=== PATIENT | female | born 1990 | race African-American/Black ===

== ENCOUNTER 2016-08-27 22:40 | Emergency (ER) | payer OTHER ==
[2016-08-27 23:44] LABS: BASOPHILS 0.3 %; BASOPHILS ABSOLUTE 0.02 10/3/uL (0.0-0.16); EOSINOPHILS 1.3 %; EOSINOPHILS ABSOLUTE 0.08 10/3/uL (0.0-0.53); ER CBC TAT 0 Hrs 05 Mins; HEMATOCRIT 37.1 % (36.0-48.0); HEMOGLOBIN 11.8 g/dL (12.0-16.0); IMMATURE GRANULOCYTES 0.2 %; IMMATURE GRANULOCYTES ABSOLUTE 0.01 10/3/uL (0.0-0.11); LYMPHOCYTES 40.6 %; LYMPHOCYTES ABSOLUTE 2.43 10/3/uL (0.67-4.30); MEAN CORPUS HGB CONC 31.8 g/dL (32.0-36.0); MEAN CORPUSCULAR HEMOGLOB 27.3 pg (26.0-34.0); MEAN CORPUSCULAR VOLUME 85.9 fL (80-100); MEAN PLATELET VOLUME 8.5 fL (9.2-13.0); MONOCYTES 5.2 %; MONOCYTES ABSOLUTE 0.31 10/3/uL (0.21-1.20); NEUTROPHILS 52.4 %; NEUTROPHILS ABSOLUTE 3.13 10/3/uL (2.02-8.40); PLATELET COUNT 339 10/3/uL (150-400); RED CELL COUNT 4.32 10/6/uL (4.0-5.6)
[2016-08-27 23:45] LABS: MANUAL DIFF NO %
[2016-08-28] LABS: A/G RATIO 0.9 (0.7-1.9); ALBUMIN 3.5 G/DL (3.5-5.0); ALKALINE PHOSPHATASE 64 U/L (45-117); CALCIUM, SERUM 8.4 MG/DL (8.5-10.4); CHLORIDE, SERUM 108 MMOL/L (96-112); CREATININE 0.65 MG/DL (0.55-1.02); GFR AFRICAN AMERICAN 140 ML/MIN (>=60); GFR NON AFRICAN AMERICAN 121 ML/MIN (>=60); GLOBULIN 3.8 G/DL (2.5-4.1); GLUCOSE, SERUM 95 MG/DL (60-99); POTASSIUM, SERUM 3.6 MMOL/L (3.5-5.3); SGOT(AST) 11 U/L (5-40); SGPT(ALT) 19 U/L (5-65); SODIUM, SERUM 143 MMOL/L (135-148); TOTAL BILIRUBIN 0.2 MG/DL (0-1.2); TOTAL PROTEIN 7.3 G/DL (6.0-8.5)
[2016-08-28 00:01] LABS: BUN (BLOOD UREA NITROGEN) 10 MG/DL (6-23); CO2 (CARBON DIOXIDE) 28 MMOL/L (24-34)
== END 2016-08-28 01:31 | disposition home or self-care (01) ==
LOC: ER 22:40
PROVIDERS: Nurse Practitioner
DX: M62.830 Muscle spasm of back (principal); F17.200 Nicotine dependence, unspecified, uncomplicated; Z88.8 Allergy status to other drugs, medicaments and biological substances
CPT/HCPCS: 80053; 85025; 93005; 99284; A9270-GY; J1885; J2360

== ENCOUNTER 2016-09-10 10:07 | Emergency (ER) | payer OTHER ==
[2016-09-10 10:35] LABS: ASCORBIC ACID (UR NOT ORDER) NEG (NEG); BILIRUBIN, URINE NEGATIVE (NEG); ER URINALYSIS TAT 0 Hrs 22 Mins; KETONE, URINE NEGATIVE (NEG); LEUKOCYTE ESTERASE(NOT OR NEG (NEG); NITRITE (URINE) NEG (NEG); WBC (NOT ORDERED) (RFLEX) 4 (0-5)
[2016-09-10 10:36] LABS: BASOPHILS 0.4 %; BASOPHILS ABSOLUTE 0.03 10/3/uL (0.0-0.16); EOSINOPHILS ABSOLUTE 0.14 10/3/uL (0.0-0.53); ER CBC TAT 0 Hrs 10 Mins; HEMATOCRIT 34.6 % (36.0-48.0); HEMOGLOBIN 10.9 g/dL (12.0-16.0); IMMATURE GRANULOCYTES 0.3 %; IMMATURE GRANULOCYTES ABSOLUTE 0.02 10/3/uL (0.0-0.11); LYMPHOCYTES 49.6 %; LYMPHOCYTES ABSOLUTE 3.43 10/3/uL (0.67-4.30); MANUAL DIFF NO %; MEAN CORPUS HGB CONC 31.5 g/dL (32.0-36.0); MEAN CORPUSCULAR HEMOGLOB 26.9 pg (26.0-34.0); MEAN CORPUSCULAR VOLUME 85.4 fL (80-100); MEAN PLATELET VOLUME 8.6 fL (9.2-13.0); MONOCYTES 7.8 %; MONOCYTES ABSOLUTE 0.54 10/3/uL (0.21-1.20); NEUTROPHILS 39.9 %; NEUTROPHILS ABSOLUTE 2.75 10/3/uL (2.02-8.40); PLATELET COUNT 274 10/3/uL (150-400); RED CELL COUNT 4.05 10/6/uL (4.0-5.6); WHITE BLOOD CELLS 6.9 10/3/uL (4.5-10.5)
[2016-09-10 10:45] LABS: INTERNATIONAL NORMAL RATI 1.1 UNITS (-); PARTIAL THROMBO TIME 29.7 SEC (22.5-37.2); PROTIME (NOT ORD) 13.6 SEC (12.0-14.5)
[2016-09-10 10:51] LABS: BUN (BLOOD UREA NITROGEN) 10 MG/DL (6-23); CHEST PAIN PROFILE TAT 0 Hrs 25 Mins; CHLORIDE, SERUM 109 MMOL/L (96-112); CO2 (CARBON DIOXIDE) 27 MMOL/L (24-34); CREATININE 0.56 MG/DL (0.55-1.02); GFR AFRICAN AMERICAN 147 ML/MIN (>=60); GFR NON AFRICAN AMERICAN 127 ML/MIN (>=60); GLUCOSE, SERUM 92 MG/DL (60-99); POTASSIUM, SERUM 4.2 MMOL/L (3.5-5.3); SODIUM, SERUM 142 MMOL/L (135-148); TROPONIN I <0.02 NG/ML (<0.05)
== END 2016-09-10 12:48 | disposition home or self-care (01) ==
LOC: ER 10:07
PROVIDERS: Emergency Medicine
DX: R42 Dizziness and giddiness (principal); F17.200 Nicotine dependence, unspecified, uncomplicated; Z88.8 Allergy status to other drugs, medicaments and biological substances
CPT/HCPCS: 70450; 80048; 81001; 83735; 84484; 84703; 85025; 85610; 85730; 93005; 99285

== ENCOUNTER 2016-09-15 09:13 | Emergency (ER) | payer OTHER ==
[2016-09-15 09:43] LABS: BASOPHILS 0.4 %; BASOPHILS ABSOLUTE 0.03 10/3/uL (0.0-0.16); EOSINOPHILS 0.8 %; EOSINOPHILS ABSOLUTE 0.07 10/3/uL (0.0-0.53); HEMATOCRIT 36.4 % (36.0-48.0); HEMOGLOBIN 11.7 g/dL (12.0-16.0); IMMATURE GRANULOCYTES 0.2 %; IMMATURE GRANULOCYTES ABSOLUTE 0.02 10/3/uL (0.0-0.11); LYMPHOCYTES 31.5 %; LYMPHOCYTES ABSOLUTE 2.62 10/3/uL (0.67-4.30); MANUAL DIFF NO %; MEAN CORPUS HGB CONC 32.1 g/dL (32.0-36.0); MEAN CORPUSCULAR HEMOGLOB 27.5 pg (26.0-34.0); MEAN CORPUSCULAR VOLUME 85.6 fL (80-100); MEAN PLATELET VOLUME 8.6 fL (9.2-13.0); MONOCYTES 9.6 %; NEUTROPHILS 57.5 %; NEUTROPHILS ABSOLUTE 4.78 10/3/uL (2.02-8.40); PLATELET COUNT 275 10/3/uL (150-400); RBC DISTRIBUTION WIDTH 12.9 % (12.0-16.0); RED CELL COUNT 4.25 10/6/uL (4.0-5.6); WHITE BLOOD CELLS 8.3 10/3/uL (4.5-10.5)
[2016-09-15 09:55] LABS: D-DIMER QUANTITATIVE 0.29 ug/mLFEU (< 0.50)
[2016-09-15 10:08] LABS: A/G RATIO 0.9 (0.7-1.9); ALBUMIN 3.6 G/DL (3.5-5.0); ALKALINE PHOSPHATASE 60 U/L (45-117); CALCIUM, SERUM 8.4 MG/DL (8.5-10.4); CHLORIDE, SERUM 107 MMOL/L (96-112); CO2 (CARBON DIOXIDE) 27 MMOL/L (24-34); CREATININE 0.62 MG/DL (0.55-1.02); GFR AFRICAN AMERICAN 142 ML/MIN (>=60); GFR NON AFRICAN AMERICAN 123 ML/MIN (>=60); GLOBULIN 3.9 G/DL (2.5-4.1); GLUCOSE, SERUM 94 MG/DL (60-99); SGOT(AST) 9 U/L (5-40); SGPT(ALT) 15 U/L (5-65); SODIUM, SERUM 140 MMOL/L (135-148); TOTAL BILIRUBIN 0.3 MG/DL (0-1.2); TOTAL PROTEIN 7.5 G/DL (6.0-8.5)
[2016-09-15 10:09] LABS: ACETAMINOPHEN LEVEL (TYLENOL) < 2.0 MCG/ML (10.0-20.0); ALCOHOL < 10 MG/DL (0); BUN (BLOOD UREA NITROGEN) 15 MG/DL (6-23); SALICYLATE < 1.7 MG/DL (-)
[2016-09-15 10:15] LABS: AMPHETAMINES (NOT ORD) NEG (NEG); BARBITURATES (NOT ORDERED NEG (NEG); BENZODIAZEPINES (NOT ORD) NEG (NEG); CANNABINOIDS (THC) NEG (NEG); COCAINE (NOT ORDERED) NEG (NEG); OPIATES NEG (NEG); PHENCYCLIDINE(PCP) NEG (NEG); TRICYCLICS NEG (NEG)
== END 2016-09-15 13:06 | disposition home or self-care (01) ==
LOC: ER 09:13
PROVIDERS: Hospitalist
DX: R42 Dizziness and giddiness (principal); F17.200 Nicotine dependence, unspecified, uncomplicated; Z88.1 Allergy status to other antibiotic agents
CPT/HCPCS: 70450; 80053; 80305; 80307; 84443; 84703; 85025; 85379; 93005; 99284

== ENCOUNTER 2016-09-20 10:05 | Emergency (ER) | payer OTHER ==
[2016-09-20 10:05] LABS: BASOPHILS 0.3 %; BASOPHILS ABSOLUTE 0.02 10/3/uL (0.0-0.16); EOSINOPHILS 1.3 %; EOSINOPHILS ABSOLUTE 0.09 10/3/uL (0.0-0.53); ER CBC TAT 0 Hrs 03 Mins; HEMATOCRIT 37.7 % (36.0-48.0); HEMOGLOBIN 12.2 g/dL (12.0-16.0); IMMATURE GRANULOCYTES 0.1 %; IMMATURE GRANULOCYTES ABSOLUTE 0.01 10/3/uL (0.0-0.11); LYMPHOCYTES 45.4 %; LYMPHOCYTES ABSOLUTE 3.14 10/3/uL (0.67-4.30); MEAN CORPUS HGB CONC 32.4 g/dL (32.0-36.0); MEAN CORPUSCULAR HEMOGLOB 27.4 pg (26.0-34.0); MEAN CORPUSCULAR VOLUME 84.5 fL (80-100); MEAN PLATELET VOLUME 8.7 fL (9.2-13.0); MONOCYTES 7.8 %; MONOCYTES ABSOLUTE 0.54 10/3/uL (0.21-1.20); NEUTROPHILS 45.1 %; NEUTROPHILS ABSOLUTE 3.12 10/3/uL (2.02-8.40); PLATELET COUNT 295 10/3/uL (150-400); RBC DISTRIBUTION WIDTH 12.8 % (12.0-16.0); RED CELL COUNT 4.46 10/6/uL (4.0-5.6); WHITE BLOOD CELLS 6.9 10/3/uL (4.5-10.5)
[2016-09-20 10:13] LABS: PARTIAL THROMBO TIME 28.6 SEC (22.5-37.2); PROTIME (NOT ORD) 13.1 SEC (12.0-14.5)
[2016-09-20 10:14] LABS: MANUAL DIFF NO %
[2016-09-20 10:21] LABS: BUN (BLOOD UREA NITROGEN) 8 MG/DL (6-23); CALCIUM, SERUM 8.4 MG/DL (8.5-10.4); CHEST PAIN PROFILE TAT 0 Hrs 19 Mins; CHLORIDE, SERUM 105 MMOL/L (96-112); CO2 (CARBON DIOXIDE) 27 MMOL/L (24-34); GFR AFRICAN AMERICAN 137 ML/MIN (>=60); GFR NON AFRICAN AMERICAN 118 ML/MIN (>=60); GLUCOSE, SERUM 85 MG/DL (60-99); POTASSIUM, SERUM 3.6 MMOL/L (3.5-5.3); SODIUM, SERUM 140 MMOL/L (135-148); TROPONIN I <0.02 NG/ML (<0.05)
== END 2016-09-20 12:05 | disposition home or self-care (01) ==
LOC: ER 10:05
PROVIDERS: Nurse Practitioner
DX: R42 Dizziness and giddiness (principal); F41.9 Anxiety disorder, unspecified; R00.2 Palpitations; G43.909 Migraine, unspecified, not intractable, without status migrainosus; Z88.8 Allergy status to other drugs, medicaments and biological substances
CPT/HCPCS: 71010; 80048; 83735; 84484; 84703; 85025; 85610; 85730; 93005; 93225; 99285

== ENCOUNTER 2016-09-30 23:50 | Emergency (ER) | payer OTHER ==
[2016-10-01 00:22] LABS: BASOPHILS 0.4 %; BASOPHILS ABSOLUTE 0.02 10/3/uL (0.0-0.16); EOSINOPHILS 0.6 %; EOSINOPHILS ABSOLUTE 0.03 10/3/uL (0.0-0.53); HEMOGLOBIN 12.8 g/dL (12.0-16.0); IMMATURE GRANULOCYTES 0.2 %; IMMATURE GRANULOCYTES ABSOLUTE 0.01 10/3/uL (0.0-0.11); LYMPHOCYTES 38.6 %; LYMPHOCYTES ABSOLUTE 1.82 10/3/uL (0.67-4.30); MEAN CORPUS HGB CONC 32.8 g/dL (32.0-36.0); MEAN CORPUSCULAR HEMOGLOB 27.7 pg (26.0-34.0); MEAN CORPUSCULAR VOLUME 84.4 fL (80-100); MEAN PLATELET VOLUME 8.8 fL (9.2-13.0); MONOCYTES 7.4 %; MONOCYTES ABSOLUTE 0.35 10/3/uL (0.21-1.20); NEUTROPHILS 52.8 %; NEUTROPHILS ABSOLUTE 2.49 10/3/uL (2.02-8.40); PLATELET COUNT 362 10/3/uL (150-400); RBC DISTRIBUTION WIDTH 12.6 % (12.0-16.0); RED CELL COUNT 4.62 10/6/uL (4.0-5.6); WHITE BLOOD CELLS 4.7 10/3/uL (4.5-10.5)
[2016-10-01 00:23] LABS: MANUAL DIFF NO %
[2016-10-01 00:27] LABS: INTERNATIONAL NORMAL RATI 1.1 UNITS (-); PARTIAL THROMBO TIME 28.6 SEC (22.5-37.2); PROTIME (NOT ORD) 13.9 SEC (12.0-14.5)
[2016-10-01 00:37] LABS: BUN (BLOOD UREA NITROGEN) 11 MG/DL (6-23); CALCIUM, SERUM 8.6 MG/DL (8.5-10.4); CHEST PAIN PROFILE TAT 0 Hrs 21 Mins; CHLORIDE, SERUM 105 MMOL/L (96-112); CO2 (CARBON DIOXIDE) 31 MMOL/L (24-34); CREATININE 0.69 MG/DL (0.55-1.02); GFR AFRICAN AMERICAN 137 ML/MIN (>=60); GFR NON AFRICAN AMERICAN 118 ML/MIN (>=60); POTASSIUM, SERUM 3.1 MMOL/L (3.5-5.3); SODIUM, SERUM 143 MMOL/L (135-148); TROPONIN I <0.02 NG/ML (<0.05)
[2016-10-01 00:40] LABS: GLUCOSE, SERUM 105 MG/DL (60-99)
== END 2016-10-01 06:08 | disposition home or self-care (01) ==
LOC: ER 23:50
PROVIDERS: Specialist
DX: M25.512 Pain in left shoulder (principal); Z88.1 Allergy status to other antibiotic agents
CPT/HCPCS: 71020; 80048; 83735; 84484; 85025; 85610; 85730; 93005; 99285; A9270-GY

== ENCOUNTER 2016-10-11 04:50 | Emergency (ER) | payer OTHER | END 2016-10-11 06:27 | disposition home or self-care (01) | LOC: ER 04:50 | DX: F41.9 Anxiety disorder, unspecified (principal); Z88.8 Allergy status to other drugs, medicaments and biological substances; Y04.0XXA Assault by unarmed brawl or fight, initial encounter | CPT/HCPCS: 72050; 99284 ==

== ENCOUNTER 2016-11-30 23:57 | Emergency (ER) | payer SELFPAY ==
[2016-11-30 21:05] LABS: BASOPHILS 0.4 %; BASOPHILS ABSOLUTE 0.03 10/3/uL (0.0-0.16); EOSINOPHILS 0.9 %; EOSINOPHILS ABSOLUTE 0.06 10/3/uL (0.0-0.53); HEMOGLOBIN 11.3 g/dL (12.0-16.0); IMMATURE GRANULOCYTES 0.1 %; IMMATURE GRANULOCYTES ABSOLUTE 0.01 10/3/uL (0.0-0.11); LYMPHOCYTES 41.9 %; MEAN CORPUS HGB CONC 32.4 g/dL (32.0-36.0); MEAN CORPUSCULAR HEMOGLOB 26.8 pg (26.0-34.0); MEAN CORPUSCULAR VOLUME 82.9 fL (80-100); MEAN PLATELET VOLUME 8.6 fL (9.2-13.0); MONOCYTES 8.4 %; MONOCYTES ABSOLUTE 0.56 10/3/uL (0.21-1.20); NEUTROPHILS 48.3 %; NEUTROPHILS ABSOLUTE 3.22 10/3/uL (2.02-8.40); PLATELET COUNT 356 10/3/uL (150-400); RBC DISTRIBUTION WIDTH 12.8 % (12.0-16.0); RED CELL COUNT 4.21 10/6/uL (4.0-5.6)
[2016-11-30 21:08] LABS: ER CBC TAT 0 Hrs 07 Mins; HEMATOCRIT 34.9 % (36.0-48.0); MANUAL DIFF NO %; WHITE BLOOD CELLS 6.7 10/3/uL (4.5-10.5)
[2016-11-30 21:15] LABS: PARTIAL THROMBO TIME 30.1 SEC (22.5-37.2); PROTIME (NOT ORD) 13.2 SEC (12.0-14.5)
[2016-11-30 21:25] LABS: BUN (BLOOD UREA NITROGEN) 14 MG/DL (6-23); CALCIUM, SERUM 8.9 MG/DL (8.5-10.4); CHEST PAIN PROFILE TAT 0 Hrs 24 Mins; CHLORIDE, SERUM 109 MMOL/L (96-112); CO2 (CARBON DIOXIDE) 28 MMOL/L (24-34); CREATININE 0.68 MG/DL (0.55-1.02); GFR AFRICAN AMERICAN 138 ML/MIN (>=60); GFR NON AFRICAN AMERICAN 119 ML/MIN (>=60); GLUCOSE, SERUM 103 MG/DL (60-99); POTASSIUM, SERUM 3.3 MMOL/L (3.5-5.3); TROPONIN I <0.02 NG/ML (<0.05)
[2016-11-30 21:26] LABS: SODIUM, SERUM 136 MMOL/L (135-148)
== END 2016-12-01 00:04 | disposition home or self-care (01) ==
LOC: ER 23:57
PROVIDERS: Hospitalist
DX: R07.89 Other chest pain (principal); R21 Rash and other nonspecific skin eruption; Z88.8 Allergy status to other drugs, medicaments and biological substances
CPT/HCPCS: 71020; 80048; 83735; 84484; 85025; 85610; 85730; 93005; 99285

== ENCOUNTER 2016-12-10 23:16 | Emergency (ER) | payer SELFPAY ==
[2016-12-10 23:29] LABS: BASOPHILS 0.4 %; BASOPHILS ABSOLUTE 0.03 10/3/uL (0.0-0.16); EOSINOPHILS 0.7 %; EOSINOPHILS ABSOLUTE 0.06 10/3/uL (0.0-0.53); ER CBC TAT 0 Hrs 03 Mins; HEMATOCRIT 33.7 % (36.0-48.0); HEMOGLOBIN 10.8 g/dL (12.0-16.0); IMMATURE GRANULOCYTES 0.2 %; IMMATURE GRANULOCYTES ABSOLUTE 0.02 10/3/uL (0.0-0.11); LYMPHOCYTES 29.3 %; LYMPHOCYTES ABSOLUTE 2.42 10/3/uL (0.67-4.30); MEAN CORPUSCULAR HEMOGLOB 26.5 pg (26.0-34.0); MEAN CORPUSCULAR VOLUME 82.6 fL (80-100); MEAN PLATELET VOLUME 8.5 fL (9.2-13.0); MONOCYTES 10.4 %; MONOCYTES ABSOLUTE 0.86 10/3/uL (0.21-1.20); NEUTROPHILS ABSOLUTE 4.86 10/3/uL (2.02-8.40); PLATELET COUNT 260 10/3/uL (150-400); RED CELL COUNT 4.08 10/6/uL (4.0-5.6); WHITE BLOOD CELLS 8.3 10/3/uL (4.5-10.5)
[2016-12-10 23:30] LABS: MANUAL DIFF NO %
[2016-12-10 23:42] LABS: BUN (BLOOD UREA NITROGEN) 13 MG/DL (6-23); CALCIUM, SERUM 8.4 MG/DL (8.5-10.4); CHLORIDE, SERUM 110 MMOL/L (96-112); CO2 (CARBON DIOXIDE) 27 MMOL/L (24-34); CREATININE 0.72 MG/DL (0.55-1.02); GFR AFRICAN AMERICAN 132 ML/MIN (>=60); GFR NON AFRICAN AMERICAN 114 ML/MIN (>=60); GLUCOSE, SERUM 97 MG/DL (60-99); POTASSIUM, SERUM 3.5 MMOL/L (3.5-5.3); SODIUM, SERUM 142 MMOL/L (135-148)
== END 2016-12-11 00:30 | disposition home or self-care (01) ==
LOC: ER 23:16
PROVIDERS: Nurse Practitioner
DX: F41.9 Anxiety disorder, unspecified (principal); M32.9 Systemic lupus erythematosus, unspecified; J02.9 Acute pharyngitis, unspecified; Z88.8 Allergy status to other drugs, medicaments and biological substances
CPT/HCPCS: 80048; 84703; 85025; 93005; 99284

== ENCOUNTER 2016-12-15 21:12 | Emergency (ER) | payer SELFPAY ==
[2016-12-15 21:41] LABS: BASOPHILS 0.6 %; BASOPHILS ABSOLUTE 0.04 10/3/uL (0.0-0.16); EOSINOPHILS 0.5 %; EOSINOPHILS ABSOLUTE 0.03 10/3/uL (0.0-0.53); IMMATURE GRANULOCYTES 0.2 %; IMMATURE GRANULOCYTES ABSOLUTE 0.01 10/3/uL (0.0-0.11); LYMPHOCYTES 36.9 %; LYMPHOCYTES ABSOLUTE 2.35 10/3/uL (0.67-4.30); MEAN CORPUS HGB CONC 31.4 g/dL (32.0-36.0); MEAN CORPUSCULAR HEMOGLOB 26.3 pg (26.0-34.0); MEAN CORPUSCULAR VOLUME 83.5 fL (80-100); MEAN PLATELET VOLUME 8.4 fL (9.2-13.0); MONOCYTES 8.5 %; MONOCYTES ABSOLUTE 0.54 10/3/uL (0.21-1.20); NEUTROPHILS 53.3 %; PLATELET COUNT 302 10/3/uL (150-400); RBC DISTRIBUTION WIDTH 13.3 % (12.0-16.0); RED CELL COUNT 4.19 10/6/uL (4.0-5.6); WHITE BLOOD CELLS 6.4 10/3/uL (4.5-10.5)
[2016-12-15 21:42] LABS: MANUAL DIFF NO %
[2016-12-15 21:51] LABS: PARTIAL THROMBO TIME 28.9 SEC (22.5-37.2); PROTIME (NOT ORD) 13.1 SEC (12.0-14.5)
[2016-12-15 21:59] LABS: BUN (BLOOD UREA NITROGEN) 12 MG/DL (6-23); CALCIUM, SERUM 8.5 MG/DL (8.5-10.4); CHEST PAIN PROFILE TAT 0 Hrs 24 Mins; CHLORIDE, SERUM 110 MMOL/L (96-112); CO2 (CARBON DIOXIDE) 28 MMOL/L (24-34); CREATININE 0.66 MG/DL (0.55-1.02); GFR AFRICAN AMERICAN 139 ML/MIN (>=60); GFR NON AFRICAN AMERICAN 120 ML/MIN (>=60); GLUCOSE, SERUM 86 MG/DL (60-99); POTASSIUM, SERUM 3.6 MMOL/L (3.5-5.3); SODIUM, SERUM 142 MMOL/L (135-148); TROPONIN I <0.02 NG/ML (<0.05)
== END 2016-12-16 04:11 | disposition left against medical advice (07) ==
LOC: ER 21:12
PROVIDERS: Emergency Medicine
DX: R07.9 Chest pain, unspecified (principal); Z53.21 Procedure and treatment not carried out due to patient leaving prior to being seen by health care provider
CPT/HCPCS: 80048; 83735; 84484; 85025; 85610; 85730; 93005